=== PATIENT | male | born 1995 | race Caucasian/White ===

== ENCOUNTER 2016-11-18 00:28 | Emergency (ER) | payer OTHER ==
[2016-11-18] MEDS ORDERED: Ibuprofen 600 MG TAB ONE (01:25)
== END 2016-11-18 01:42 | disposition home or self-care (01) ==
LOC: ER 00:28
DX: S93.622A Sprain of tarsometatarsal ligament of left foot, initial encounter (principal); W01.0XXA Fall on same level from slipping, tripping and stumbling without subsequent striking against object, initial encounter